=== PATIENT | male | born 1980 | race Caucasian/White ===

== ENCOUNTER 2019-03-07 22:55 | Emergency (ER) | payer OTHER ==
[~2019-03-07] VITALS: Ht 182.9 cm; Wt 74.3 kg
[~2019-03-07 22:55] MED LIST: HYDR-4011 PO; NALO4SPR NS; NAPR-985 PO; TAMS-14 PO
[2019-03-07 22:59] VITALS: Ht 182.9 cm; Wt 74.3 kg
[2019-03-08] MEDS ORDERED: HYDROmorphONE 0.5 MG/0.5 ML SYG IV STA (00:19)
[2019-03-08] MEDS ORDERED: ONDANSETRON 4 MG INJ IV STA (00:19)
[2019-03-08] MEDS ORDERED: SOD CHLORIDE 0.9% 1,000 ML IV ONE (00:30)
[2019-03-08] MEDS ORDERED: IOHEXOL 300MG/ML 150 ML BTL ONE (01:21)
[2019-03-08] MEDS ORDERED: SOD CHLORIDE 0.9% 100 ML ONE (01:21)
[2019-03-08 02:55] VITALS: BP 99/58; PULSE 64; RESP 20
== END 2019-03-08 02:56 | disposition home or self-care (01) ==
LOC: FTE 22:55
DX: N20.0 Calculus of kidney (principal)
CPT/HCPCS: 71045; 74177; 80053; 81003; 84484; 85025; 85610; 85730; 93005; 96374; 96375; 99285; J1170; J2405; J7030; Q9967